=== PATIENT | male | born 1940 | race Caucasian/White ===

== ENCOUNTER 2021-05-17 09:33 | Day surgery (SDC) | payer MEDICARE, OTHER ==
[~2021-05-17] VITALS: Ht 182.9 cm; Wt 79.5 kg
[2021-05-17 10:10] VITALS: BP 171/95
[2021-05-17] MEDS ORDERED: [UNRECOGNIZED DRUG - REMARK] (10:20)
[2021-05-17] MEDS ORDERED: gabapentin (10:20)
[2021-05-17] MEDS ORDERED: flomax (10:21)
[2021-05-17] MEDS ORDERED: xarelto (10:21)
[2021-05-17] MEDS ORDERED: TAMS-11 PO (10:22)
[2021-05-17 11:11] LABS: INTERNATIONAL NORMALIZED RATIO 1.1 (0.93-1.1); PROTHROMBIN TIME 11.7 Seconds (9.6-11.5)
[2021-05-17] MEDS ORDERED: FENTANYL PF 100 MCG/2ML ONE (12:10)
[2021-05-17] MEDS ORDERED: NALOXONE 1 MG/ML, 2ML ONE (12:10)
[2021-05-17] MEDS ORDERED: MIDAZOLAM 1 MG/ML, 5ML ONE (12:10)
[2021-05-17] MEDS ORDERED: FLUMAZENIL 0.1 MG/1 ML, 5ML ONE (12:10)
== END 2021-05-17 13:48 | disposition home or self-care (01) ==
LOC: OUT 09:33
PROVIDERS: ATTEND Internal Medicine
DX: C7A.8 Other malignant neuroendocrine tumors (principal); I10 Essential (primary) hypertension; I48.91 Unspecified atrial fibrillation; Z72.89 Other problems related to lifestyle; Z79.899 Other long term (current) drug therapy
CPT/HCPCS: 36415; 47000; 77012; 85610; 88307; 99156; 99157; J2250; J3010; J2310